=== PATIENT | female | born 1995 ===

== ENCOUNTER 2017-09-27 01:06 | Emergency (ER) | payer SELFPAY ==
[~2017-09-27] VITALS: Ht 157.5 cm; Wt 133.8 kg
[2017-09-27] MEDS ORDERED: AZIT250 (01:22)
[2017-09-27] MEDS ORDERED: Amoxicillin500 MG PO (01:43)
== END 2017-09-27 02:03 | disposition home or self-care (01) ==
LOC: ER 01:06
DX: L51.9 Erythema multiforme, unspecified (principal); T36.3X5A Adverse effect of macrolides, initial encounter; Z88.1 Allergy status to other antibiotic agents; Z79.2 Long term (current) use of antibiotics; Z87.891 Personal history of nicotine dependence
CPT/HCPCS: 99283